=== PATIENT | female | born 1940 | race African-American/Black ===

== ENCOUNTER 2017-07-09 19:39 | Inpatient (IN) | payer MEDICARE, SELFPAY ==
[2017-07-09] VITALS (9 sets, daily range): BP systolic 126–172; BP diastolic 71–99; PULSE 69–90; RESP 15–25; TEMP 36.8; O2SAT 97–98; BMI 20.9
--- NOTE | 2017-07-09 20:02 | CT_ITS ---
STUDY: CT BRAIN WITHOUT CONTRAST REASON FOR EXAM: Female, 77 years old. Neurologic symptoms. RADIATION DOSAGE (If Supplied By Facility): CTDIvol = ( 44.99 ) mGy, DLP = ( 745.49 ) mGycm TECHNIQUE: Transaxial CT imaging of the brain was performed without administration of intravenous contrast material. Individualized dose optimization techniques were used for this CT. COMPARISON: 05/29/2017. FINDINGS: Normal soft tissue structures. Normal calvarium. There is moderate cerebral atrophy with widening of the extra-axial spaces and ventricular dilatation. There are areas of decreased attenuation within the white matter tracts of the supratentorial brain, consistent with microvascular disease changes. There are bilateral lacunar infarcts of the basal ganglia and thalami. Normal brainstem. There is moderate cerebellar atrophy. There is no intracranial hemorrhage. There are no findings of an acute ischemic infarction. Normal visualized paranasal sinuses. CT/Brain/Head without Contrast IMPRESSION: No change. No acute abnormality. Atrophy and White matter disease. Electronically Signed: Laz Lepe MD at 21:15 EST , Service support ,
--- NOTE | 2017-07-09 20:02 | EKG12_ITS ---
Test Reason : CP Blood Pressure : / mmHG Vent. Rate : 090 BPM Atrial Rate : 090 BPM P-R Int : 132 ms QRS Dur : 062 ms QT Int : 354 ms P-R-T Axes : 035 014 022 degrees QTc Int : 433 ms Normal sinus rhythm Normal ECG Confirmed by PARVEEN SIMMONS MD ([id number]), image editor VINNY SHANKAR ([id number]) on 07/12/2017 3:25:23 PM Referred By: DAVE Confirmed By:PARVEEN SIMMONS MD
--- NOTE | 2017-07-09 20:02 | RAD_ITS ---
STUDY: X-RAY CHEST REASON FOR EXAM: Female, 77 years old. Short of breath TECHNIQUE: Single AP portable view of the chest. COMPARISON: 03/31/2017. FINDINGS: The lungs are clear and expanded. There is no demonstrated pleural abnormality. Normal size heart. Normal mediastinum and mikki. Normal visualized pulmonary arteries. There is atherosclerotic tortuosity of the aortic arch and descending thoracic aorta. Implanted home economist consumer service is seen overlying the left upper quadrant. Normal visualized thoracic spine. Normal visualized ribs, clavicles, and shoulders. There is no demonstrated abnormality of the visualized soft tissue structures of the upper abdomen. RAD/Chest 1 View IMPRESSION: No acute chest disease. Electronically Signed: Laz Lepe MD at 21:17 EST , Service support ,
[2017-07-09 20:20] LABS: Absolute Lymphocyte Count 1.69 X10^3/ul (0.83-4.51); Absolute Neutrophil Count 8.7 X10^3/uL (2.0-7.7); Basophil# 0.01 X10^3/uL; Basophil% 0.1 % (0-1); Eosinophil# 0.18 X10^3/uL; Eosinophils% 1.5 % (0-5); Hematocrit 41.5 % (37-47); Hemoglobin 13.2 g/dl (12.0-15.0); Lymphocyte # 1.69 X10^3/ul (4.0); Lymphocyte % 14.5 % (19-41); Mean Corp Hgb Conc 31.8 g/gl (32-36); Mean Corpuscular Hgb 29.1 pg (27.0-32.0); Mean Corpuscular Volume 91.4 fL (81-99); Mean Platelet Vol. 11.1 fl (6.2-12.0); Monocyte# 1.03 X10^3/uL; Monocyte% 8.8 % (0-10); Neutrophil # 8.65 X10^3/uL (2.7-7.7); Neutrophil % 74.3 % (47-70); Platelet Count 206 K/mm3 (150-450); RBC Distribution Width CV 14.2 % (11.6-14.6); RBC Distribution Width SD 47.5 fl (35.1-43.9); Red Blood Count 4.54 M/mm3 (4.2-5.4); White Blood Count 11.7 K/mm3 (4.4-11.0)
[2017-07-09 20:21] LABS: POSITIVE COUNT NO; POSITIVE DIFFERENTIAL NO; POSITIVE MORPHOLOGY NO
[2017-07-09 20:24] LABS: Prothrombin Time (Protime)PT. 12.9 SECONDS (11.7-14.9)
[2017-07-09 20:25] LABS: Partial Thromboplast Time 28.8 Seconds (24.1-36.2)
[2017-07-09 20:26] LABS: Bedside Glucose 110 mg/dL (70-110)
[2017-07-09 20:36] LABS: Anion Gap 9 (5-15); BUN 21 mg/dL (7-18); BUN/Creat Ratio 22.1 RATIO (10-20); Calcium,Total 8.6 mg/dL (8.5-10.1); Chloride 109 mmol/L (98-107); Creatinine, Serum 0.95 mg/dL (0.55-1.02); EST Glomerular Filtration Rate 60 mL/min (>60); Est Glom Filt Rate - Afr Amer 73 mL/min (>60); Estimated Creatinine Clearance 36.23 ml/min; Glucose 108 mg/dL (70-110); Potassium 3.9 mmol/L (3.5-5.1); Sodium Level 144 mmol/L (136-145)
[2017-07-09] MEDS: 0.9% Normal Saline 1,000 ML 15 ML IV (20:38)
--- NOTE | 2017-07-09 21:00 | ED.RN ---
aware of nih changes.
--- NOTE | 2017-07-09 21:38 | ED.VISSUMM ---
- ER Visit Summary Date of Service: 07/09/17 Chief Complaint: Weakness and speech difficulty History of Present Illness: The patient is a 77 F with a history of multiple prior strokes. She has chronic speech difficulty and right-sided weakness. Family noted right leg weakness tonight around 6 PM where she can no longer walk with her walker. He states she was last up and ambulatory around 1230. Patient has a history of dementia, CVAs, diabetes, hypertension, and Alzheimer's. Patient is currently on aspirin but has been out of her Plavix for the last 2 or 3 months. She currently also has an embedded loop recorder. Family also notes that she has had increased difficulty swallowing over the past 2 or 3 days. Physical Examination: Blood pressure is 166/71, otherwise vitals are normal. Patient's lying in bed no acute distress. Head neck examination reveals no external sign of trauma. Heart is regular rate and rhythm. Lungs are clear. Abdomen is soft nontender. Neuro exam reveals an NIH score of 3. She receives one point for right leg weakness. He does fall before the count of 5 but does not hit the bed. Best language and dysarthria each receive one-point. These are chronic in nature. Test Results: EKG is sinus at 90 with no sign of acute ischemia. Head CT shows no change in no acute abnormality. Chest x-ray is unremarkable. CBC was a white count 11.7, otherwise normal. Chemistry studies are normal. Coags are normal. Troponin is less than 0.02. Emergency Department Course and Treatment: On repeat evaluation, NIH score is unchanged. Test results were discussed with the family. She will be needed for further treatment. At this time I am concerned that she cannot undergo MRI secondary to her loop recorder, but this will need to be verified. Her dysphasia will also need further evaluation. Treatment Plan: [] Disposition: Admit Impression: 1. Right leg weakness 2. Increased dysphasia This note was generated with [employer] dictation software. It may contain incorrect words, spelling, and punctuation that were not noted in review of the chart prior to signing ED Disposition - Plan for ED Patient: Chief Complaint: Neuro S/Sx Referrals: Thom Werner Chi, MD [Primary Care Provider] -
--- NOTE | 2017-07-09 21:41 | ED.DCSUM_ITS ---
- ER Visit Summary Date of Service: 07/09/17 Chief Complaint: Weakness and speech difficulty History of Present Illness: The patient is a 77 F with a history of multiple prior strokes. She has chronic speech difficulty and right-sided weakness. Family noted right leg weakness tonight around 6 PM where she can no longer walk with her walker. He states she was last up and ambulatory around 1230. Patient has a history of dementia, CVAs, diabetes, hypertension, and Alzheimer' s. Patient is currently on aspirin but has been out of her Plavix for the last 2 or 3 months. She currently also has an embedded loop recorder. Family also notes that she has had increased difficulty swallowing over the past 2 or 3 days. Physical Examination: Blood pressure is 166/71, otherwise vitals are normal. Patient's lying in bed no acute distress. Head neck examination reveals no external sign of trauma. Heart is regular rate and rhythm. Lungs are clear. Abdomen is soft nontender. Neuro exam reveals an NIH score of 3. She receives one point for right leg weakness. He does fall before the count of 5 but does not hit the bed. Best language and dysarthria each receive one-point. These are chronic in nature. Test Results: EKG is sinus at 90 with no sign of acute ischemia. Head CT shows no change in no acute abnormality. Chest x-ray is unremarkable. CBC was a white count 11.7, otherwise normal. Chemistry studies are normal. Coags are normal. Troponin is less than 0.02. Emergency Department Course and Treatment: On repeat evaluation, NIH score is unchanged. Test results were discussed with the family. She will be needed for further treatment. At this time I am concerned that she cannot undergo MRI secondary to her loop recorder, but this will need to be verified. Her dysphasia will also need further evaluation. Treatment Plan: [] Disposition: Admit Impression: 1. Right leg weakness 2. Increased dysphasia This note was generated with [employer] dictation software. It may contain incorrect words, spelling, and punctuation that were not noted in review of the chart prior to signing ED Disposition - Plan for ED Patient: Chief Complaint: Neuro S/Sx Referrals: Thom Werner Chi, MD [Primary Care Provider] -
--- NOTE | 2017-07-09 23:18 | HP.PCM_ITS ---
Problem List (1) Right leg weakness Status: Acute (2) CVA (cerebral vascular accident) Status: Acute (3) Dysarthria Status: Acute (4) Fall Status: Acute (5) Right clavicle fracture Status: Acute (6) TIA (transient ischemic attack) Status: Acute (7) right cerebral stroke Status: Acute History of Present Illness Date of Admission: 07/09/17 Chief Complaint: Right leg weakness The patient is a 77 year old female w/ h/o CVA, dementia, HTN, and CAD admitted for worsening right leg weakness. She is a poor historian. History is taken from family members. She has a stroke several months ago that resulted in right leg weakness. Despite weakness in the right leg, she was still able to move it. However, in the past few days, per family, she had limited movement in the right leg until this morning, pt was unable to move it at all. The weakness was so severe that it interfered with her ADLs. Nothing appeared to make it better or worse. Weakness was persistent. Family members became concern and brought her into the ED for workup. 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) Dementia (Chronic) Hyperlipidemia (Chronic) Coronary artery disease (Chronic) Vitamin D deficiency (Chronic) History of stroke (Chronic) CKD (chronic kidney disease), stage III (Chronic) Allergies Penicillins [PCN] Allergy (Verified 07/09/17 19:40) Unknown Home Medications: Ambulatory Orders Medication Instructions Recorded Acetaminophen [Tylenol] 1,000 mg PO Q8H PRN PRN tablet 01/25/17 Aspirin [Aspirin, Baby] 81 mg PO DAILY@0800 #30 tab.chew 01/25/17 Atorvastatin Calcium [Lipitor] 80 mg PO QHS #30 tablet 01/25/17 Tamsulosin HCl [Flomax] 0.4 mg PO DAILY@1730 capsule 02/28/17 Bisacodyl [Dulcolax] 10 mg RECTAL DAILY PRN 03/08/17 Doxycycline 100 mg PO BID 07/09/17 Memantine HCl/Donepezil HCl 1 each PO DAILY 07/09/17 [Namzaric 28 mg-10 mg Capsule] Surgical History: cataract, cholecystectomy, hysterectomy, - - R Foot surgery. 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 Smoking Status: Never smoker - *Family History Paternal History Items: Diabetes Maternal History Items: Diabetes Review of Systems Constitutional: Denies: Chills, Fever, Weight Change Eyes: Denies: Cataracts HEENT: Denies: Head Aches, Sinus Congestion, Sinus Drainage Cardiovascular: Denies: Chest Pain, Palpitations Respiratory: Denies: Cough, Shortness of breath at rest, Sputum production Gastrointestinal: Denies: Abdominal Pain, Nausea, Vomiting Genitourinary: Denies: Dysuria Musculoskeletal: Denies: Joint Pain, Joint Tenderness Skin: Denies: Rash, Wounds Neurological: Reports: Focal weakness, Numbness. Denies: Tingling Psychiatric: Denies: Anxiety, Depression, Homicidal Ideations, Suicidal Ideations Hematologic/ Lymphatic: Denies: Easy Bruising, Easy Bleeding VTE Information - Inpt Only VTE Present on Admission: No VTE Mechan Device Prophylaxis: SCD's VTE Pharm Prophylaxis ordered?: Yes Patient Problems: Active and Suspected Problems Right leg weakness (Acute) - Physical Exam General: Alert, Oriented x3, Cooperative HEENT: Atraumatic, PERRLA, EOMI, Normocephalic Neck: Supple, No JVD, Negative Carotid Bruits Lungs: Clear to auscultation, Normal air movement Cardiovascular: Regular rate, No murmurs Abdomen: Bowel Sounds Present, Soft, Non Tender Extremities: No edema, Capillary Refill Less than 3 Seconds Skin: No rashes, No breakdown Musculoskeletal: No Tenderness to Palpation of Joints or Extremities Neurological: Cranial nerves II-XII grossly intact Psych/Mental Status: Normal Affect, Appropriate Vital Signs Temp Pulse Resp BP Pulse Ox 98.3 F 75 17 168/81 H 97 07/09/17 19:40 07/09/17 22:38 07/09/17 22:38 07/09/17 22:38 07/09/17 22:38 Oxygen Delivery Method Room Air Weight: 50.349 kg Body Mass Index (BMI) 20.9 Finger Stick Blood Glucose 110 Laboratory Tests Past 24 Hrs 07/09/17 07/09/17 07/09/17 19:58 19:58 19:58 WBC 11.7 H RBC 4.54 Hgb 13.2 Hct 41.5 MCV 91.4 MCH 29.1 MCHC 31.8 L RDW 14.2 RDW Differential 47.5 H Plt Count 206 MPV 11.1 Immature Gran % (Auto) 0.800 Neut % (Auto) 74.3 H Lymph % (Auto) 14.5 L [place] % (Auto) 8.8 Eos % (Auto) 1.5 Baso % (Auto) 0.1 Absolute Neuts (auto) 8.7 H Absolute Lymphs (auto) 1.69 Total Counted Not Reportable PT 12.9 INR 1.0 APTT 28.8 Sodium 144 Potassium 3.9 Chloride 109 H Carbon Dioxide 26.0 Anion Gap 9 BUN 21 H Creatinine 0.95 Estim Creat Clear Calc 36.23 Est GFR (MDRD) Af Amer 73 Est GFR (MDRD) Non-Af 60 BUN/Creatinine Ratio 22.1 H Glucose 108 Calcium 8.6 Troponin I < 0.02 POC Glucose 07/09/17 19:47 POC Glucose 110 Assessment/Plan Active and Suspected Problems Right leg weakness (Acute) 77 year old female w/ h/o CVA, dementia, HTN, and CAD admitted for worsening right leg weakness. 1) Right leg weakness: CT negative. EKG unremarkable. H/o CVA. Will get ECHO. Will get carotid U/S. Given h/o metal implant, will repeat CT in AM. Neuro consulted. 2) H/o CVA: Resume home meds. Monitor. 3) Dementia: Most likely CVA and alzheimer's. Supportive care. 4) Prophylaxis: SCD / Heparin.
--- NOTE | 2017-07-09 23:19 | NURSING ---
PCU WORSENING RT LEG WEAKNESS MIMI
[2017-07-10] VITALS (13 sets, daily range): BP systolic 150–159; BP diastolic 74–93; PULSE 55–72; RESP 14–18; TEMP 36.6–37; O2SAT 96–100; BMI 20.5; BMI 20.6
[2017-07-10] MEDS: 0.9% Normal Saline 1,000 ML 100 ML IV ×3 (00:48→22:45)
--- NOTE | 2017-07-10 00:51 | NURSING ---
PT HAS FAILED BEDSIDE DYSPHAGIA, WILL ALERT MD AND KEEP NPO OVERNIGHT
[2017-07-10] MEDS: Heparin Injection 5,000 UNITS/ML Syringe 5000 UNITS SC ×3 (05:10→22:46)
--- NOTE | 2017-07-10 05:55 | CDU_ITS ---
Reason For Study: TIA Rt. Velocities/BP Lt. Velocities/BP Prox CCA 81/14 cm/sec. Prox CCA 83/14 cm/sec. Mid CCA 55/10 cm/sec. Mid CCA 80/15 cm/sec. Dist CCA 64/10 cm/sec. Dist CCA 72/15 cm/sec. Prox ICA 67/15 cm/sec. Prox ICA 59/11 cm/sec. Mid ICA 59/13 cm/sec. Mid ICA 62/11 cm/sec. Dist ICA 63/17 cm/sec. Dist ICA 79/19 cm/sec. Rt. ICA/CCA = 1.21. Lt. ICA/CCA = 0.98. Prox ECA 61/7 cm/sec. Prox ECA 87/11 cm/sec. Rt. Vert. 46/9 cm/sec. Lt. Vert. 45/11 cm/sec. Right Extracranial There is heterogeneous, irregular atherosclerotic plaque noted in the right common carotid artery. There is heterogeneous, irregular atherosclerotic plaque noted in the right internal carotid artery. There is no significant atherosclerotic plaque noted in the right external carotid artery. Antegrade flow is noted in the right vertebral artery. Left Extracranial There is intimal thickening but no significant atherosclerotic plaque noted in the left common carotid artery. There is heterogeneous, irregular atherosclerotic plaque noted in the left internal carotid artery. There is no significant atherosclerotic plaque noted in the left external carotid artery. Antegrade flow is noted in the left vertebral artery. Procedure Carotid Duplex 34850. Exam performed portable in patient room. Incidental Finding: Hypoechoic, non vascular structure noted Lt Thyroid measuring 1.14cm x 1.69cm. Interpretation Summary Mild (<50%) stenosis right extracranial internal carotid. Mild (<50%) stenosis left extracranial internal carotid. Flow within the vertebral arteries is antegrade bilaterally. Ordering Physician: Zackery Alvarez Referring Physician: Thom Werner Chi Performed By: Maddison Horner, RDCS, RVT
--- NOTE | 2017-07-10 05:55 | ECHOD_ITS ---
Reason For Study: TIA/CVA Procedure This was a 2D Doppler, Color Flow transthoracic echocardiogram. The study was technically difficult. PT unable to lie in left lateral position for imaging, constant movement. Exam performed portable in patient room. Left Ventricle Normal LV size. Left ventricular systolic function is normal. The estimated ejection fraction is 60 %. No regional wall motion abnormalities noted. Right Ventricle Normal RV size. Normal systolic function. Atria Normal left atrium. Normal right atrium. Mitral Valve Normal mitral valve. Tricuspid Valve Normal tricuspid valve. Mild (1+) tricuspid valve insufficiency. Pulmonary artery systolic pressure is 35 mmHg. Aortic Valve Trisinus/trileaflet aortic valve. Mild focal aortic valve calcification. Trivial eccentric aortic valve insufficiency. Pulmonic Valve The pulmonic valve is not well visualized. Great Vessels Normal aortic root. The pulmonary artery is normal size. Normal inferior vena cava. Pericardium/Pleural No pericardial effusion. MMode/2D Measurements & Calculations LVIDd: 3.8 cm IVSd: 0.87 cm Ao root diam: 3.2 cm LVIDs: 2.4 cm LVPWd: 0.79 cm LA dimension: 4.4 cm FS: 36.1 % LAV(MOD-bp): 23.3 ml LA A4 area: 10.7 cm2 RA A4 area: 10.4 cm2 LAV(MOD-bp) Indexed: 15.9 ml/m2 LAV(MOD-sp2): 21.3 ml LAV(MOD-sp4): 20.6 ml Doppler Measurements & Calculations MV E max anuel: 71.2 cm/sec Lat Peak E' Anuel: 8.2 cm/sec Med Peak E' Anuel: 4.6 cm/sec MV A max anuel: 115.1 cm/sec E/E' lat: 8.7 E/E' med: 15.5 MV E/A: 0.62 Ao V2 max: 123.3 cm/sec LV V1 max: 86.5 cm/sec PA V2 max: 76.6 cm/sec Ao max P.1 mmHg LV V1 max P.0 mmHg TR max anuel: 278.1 cm/sec TR max P.9 mmHg Interpretation Summary Normal LV size. Left ventricular systolic function is normal. The estimated ejection fraction is 60 %. Mild (1+) tricuspid valve insufficiency. Pulmonary artery systolic pressure is 35 mmHg. Ordering Physician: Zackery Alvarez Referring Physician: Thom Werner Chi Performed By: Debi Mckenna RDCS, RVT
[2017-07-10 06:20] LABS: Cholesterol 104 mg/dL (200); High Density Lipoprotein 48 mg/dL; Triglycerides 58 mg/dL; Very Low Density Lipoprotein 12 mg/dL (5-40)
[2017-07-10 07:01] LABS: Bedside Glucose 101 mg/dL (70-110)
--- NOTE | 2017-07-10 08:30 | CT_ITS ---
STUDY: CT BRAIN WITHOUT CONTRAST REASON FOR EXAM: Female, 77 years old. Right leg weakness and difficulty speaking. Patient has history of dementia. RADIATION DOSAGE (If Supplied By Facility): CTDIvol = ( 44.99 ) mGy, DLP = ( 728.62 ) mGycm TECHNIQUE: Transaxial CT imaging of the brain was performed without administration of intravenous contrast material. Multiplanar reformations are submitted for interpretation. Individualized dose optimization techniques were used for this CT. COMPARISON: CT of the head dated July 09, 2017. FINDINGS: Normal soft tissue structures. Normal calvarium. There is moderate cerebral atrophy with widening of the extra-axial spaces and ventricular dilatation. There are areas of decreased attenuation within the white matter tracts of the supratentorial brain, consistent with microvascular disease changes. There is encephalomalacia within bilateral basal ganglia probably related to old infarcts. This is unchanged since the previous CTA. Basal ganglia and thalami otherwise have a normal appearance. Normal brainstem. There is a small area of encephalomalacia within the right cerebellum probably related to old infarct. There is mild cerebellar atrophy. There is no intracranial hemorrhage. There is moderate atherosclerotic calcification of intracranial arteries. Normal visualized paranasal sinuses. CT/Brain/Head without Contrast IMPRESSION: 1. Chronic involutional changes of the brain. 2. Unchanged appearance of the brain. Electronically Signed: Nena Stoner MD at 13:00 EST , Service support ,
--- NOTE | 2017-07-10 10:45 | CASEMGMT ---
Speech therapy at bedside, unable to complete CM assessment at this time. Will attempt again later. Annika AMAYA CM
[2017-07-10] MEDS: Aspirin 81 MG TAB.CHEW PO (11:08)
[2017-07-10] MEDS: Memantine Hydrochloride 10 MG Tablet PO ×2 (11:09→22:46)
--- NOTE | 2017-07-10 13:49 | PCM.CONS.GEN ---
Problem List (1) Chronic ischemic left MCA stroke Status: Chronic (2) Alzheimer's disease Status: Chronic (3) Right leg weakness Status: Acute (4) CVA (cerebral vascular accident) Status: Acute Qualifiers: CVA mechanism: unspecified Qualified Code(s): I63.9 - Cerebral infarction, unspecified (5) Dementia Status: Chronic Qualifiers: Dementia type: Alzheimer's disease Alzheimer's disease onset: unspecified onset Dementia behavioral disturbance: without behavioral disturbance Qualified Code(s): G30.9 - Alzheimer's disease, unspecified; F02.80 - Dementia in other diseases classified elsewhere without behavioral disturbance; F02.80 - Dementia in other diseases classified elsewhere without behavioral disturbance; F02.80 - Dementia in other diseases classified elsewhere without behavioral disturbance (6) Dysarthria Status: Acute Reason for Consult Date of Consultation: 07/10/17 Reason for Consultation: Right LE weakness, dysarthria worsening History of Present Illness: The patient is a 77 year old AAF with PMH HTN, HLD, DM, H/O stroke with residual right sided weakness and aphasia, H/O left cerebellar stroke in December 2016 and possible acute left BG lacunar infarct in February 2017, dementia, CKD, CAD admitted with worsening right leg weakness and speech disturbances. History could not be obtained from the patient, due to aphasia, is obtained from medical records and documentation. Per documentation she had worsening tight LE weakness to the point that she was not able to move the same since yesterday, and her dysarthria is also worse than baseline per documentation. On examination patient had bilateral LE weakness, Labs reviewed WBCs 11.7. BUN 21, Cr-0.95. Per ED documentation she has a loop recorder. 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) Dementia (Chronic) Hyperlipidemia (Chronic) Coronary artery disease (Chronic) Vitamin D deficiency (Chronic) History of stroke (Chronic) CKD (chronic kidney disease), stage III (Chronic) Allergies Penicillins [PCN] Allergy (Verified 07/09/17 19:40) Unknown Home Medications: Ambulatory Orders Medication Instructions Recorded Acetaminophen [Tylenol] 1,000 mg PO Q8H PRN PRN tablet 01/25/17 Aspirin [Aspirin, Baby] 81 mg PO DAILY@0800 #30 tab.chew 01/25/17 Atorvastatin Calcium [Lipitor] 80 mg PO QHS #30 tablet 01/25/17 Tamsulosin HCl [Flomax] 0.4 mg PO DAILY@1730 capsule 02/28/17 Bisacodyl [Dulcolax] 10 mg RECTAL DAILY PRN 03/08/17 Doxycycline 100 mg PO BID 07/09/17 Memantine HCl/Donepezil HCl 1 each PO DAILY 07/09/17 [Namzaric 28 mg-10 mg Capsule] Surgical History: cataract, cholecystectomy, hysterectomy, - - R Foot surgery. 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 Smoking Status: Never smoker - *Family History Paternal History Items: Diabetes Maternal History Items: Diabetes Review of Systems Constitutional: Reports: - - ROS could not be obtained at present since patient is severly dysarthric Patient Problems: Active and Suspected Problems Right leg weakness (Acute) - Physical Exam General: - - awake, alert, follows VC HEENT: Atraumatic, PERRLA, EOMI, Normocephalic Neck: Supple, No JVD, Negative Carotid Bruits Lungs: Clear to auscultation, Normal air movement Cardiovascular: Regular rate, No murmurs Abdomen: Bowel Sounds Present, Soft, Non Tender Extremities: No edema, Capillary Refill Less than 3 Seconds Skin: No rashes, No breakdown Musculoskeletal: No Tenderness to Palpation of Joints or Extremities Neurological: - - consious, awake, severly dysathric, follows VC, CN 2-12 grossly intact, power Right UE 4/5, Left UE 5/5, B/L LE 3/5, plantars right mute, left flexor, denies any sensory loss, no cerebellar signs, Reflexes + B/L B/S/T/K/A, gait deferred. Vital Signs Temp Pulse Resp BP Pulse Ox 98.2 F 61 16 155/80 H 100 07/10/17 10:58 07/10/17 12:07 07/10/17 10:58 07/10/17 10:58 07/10/17 10:58 Oxygen Delivery Method Room Air Weight: 51 kg Body Mass Index (BMI) 20.5 Intake and Output for Last 24 Hours 07/08/17 07/09/17 07/10/17 23:59 23:59 23:59 Intake Total 1071 / 1071 Balance 1071 / 1071 Laboratory Tests Past 24 Hrs 07/10/17 07/10/17 00:33 05:20 Troponin I < 0.02 Triglycerides 58 Cholesterol 104 LDL Cholesterol 44 VLDL Cholesterol 12 HDL Cholesterol 48 POC Glucose 07/10/17 06:34 POC Glucose 101 Assessment/Plan Active and Suspected Problems Right leg weakness (Acute) The patient is a 77 year old AAF with PMH HTN, HLD, DM, H/O stroke with residual right sided weakness and aphasia, H/O left cerebellar stroke in December 2016 and possible acute left BG lacunar infarct in February 2017, dementia, CKD, CAD admitted with worsening right leg weakness and speech disturbances. History could not be obtained from the patient, due to aphasia, is obtained from medical records and documentation. Per documentation she had worsening tight LE weakness to the point that she was not able to move the same since yesterday, and her dysarthria is also worse than baseline per documentation. On examination patient had bilateral LE weakness, Labs reviewed WBCs 11.7. BUN 21, Cr-0.95. Per ED documentation she has a loop recorder. [] Impression R/O Stroke vs metabolic/toxic encephalopathy Dementia Plan -On ASA and Lipitor 80 mg PO q hs. Has been on high intensity statins for the past more than 3 months. Was on dual AP for possible acute left lacunar BG stroke in February 2017 for 3 months then was switched to single AP. -Can decrease Lipitor to 40 mg PO q hs -CT head did not show any acute stroke -Recommend MRI brain w/o contrast, (had MRI brain in February 2017), MRA head/neck -Recommend UA and chest xray -Recommend TTE, Hba1c -LDL-44 -On Aricept and Namenda for Dementia -Recommend PT/OT and ST -Fall precautions -GI/DVT prophylaxis -Neurology follow up as outpatient in 4-6 weeks -Please call with questions if any -Thank you for allowing us to participate in patient's care and management I spent 60 minutes taking history, doing physical examination, reviewing old medical records, coordinating care and counseling the patient. Code Visit Inpatient E&M: [id number] Init Hosp L3
--- NOTE | 2017-07-10 13:54 | CON.PCM_ITS ---
Problem List (1) Chronic ischemic left MCA stroke Status: Chronic (2) Alzheimer's disease Status: Chronic (3) Right leg weakness Status: Acute (4) CVA (cerebral vascular accident) Status: Acute Qualifiers: CVA mechanism: unspecified Qualified Code(s): I63.9 - Cerebral infarction, unspecified (5) Dementia Status: Chronic Qualifiers: Dementia type: Alzheimer's disease Alzheimer's disease onset: unspecified onset Dementia behavioral disturbance: without behavioral disturbance Qualified Code(s): G30.9 - Alzheimer's disease, unspecified; F02.80 - Dementia in other diseases classified elsewhere without behavioral disturbance; F02.80 - Dementia in other diseases classified elsewhere without behavioral disturbance; F02.80 - Dementia in other diseases classified elsewhere without behavioral disturbance (6) Dysarthria Status: Acute Reason for Consult Date of Consultation: 07/10/17 Reason for Consultation: Right LE weakness, dysarthria worsening History of Present Illness: The patient is a 77 year old AAF with PMH HTN, HLD, DM, H/O stroke with residual right sided weakness and aphasia, H/O left cerebellar stroke in December 2016 and possible acute left BG lacunar infarct in February 2017, dementia, CKD, CAD admitted with worsening right leg weakness and speech disturbances. History could not be obtained from the patient, due to aphasia, is obtained from medical records and documentation. Per documentation she had worsening tight LE weakness to the point that she was not able to move the same since yesterday , and her dysarthria is also worse than baseline per documentation. On examination patient had bilateral LE weakness, Labs reviewed WBCs 11.7. BUN 21, Cr-0.95. Per ED documentation she has a loop recorder. 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) Dementia (Chronic) Hyperlipidemia (Chronic) Coronary artery disease (Chronic) Vitamin D deficiency (Chronic) History of stroke (Chronic) CKD (chronic kidney disease), stage III (Chronic) Allergies Penicillins [PCN] Allergy (Verified 07/09/17 19:40) Unknown Home Medications: Ambulatory Orders Medication Instructions Recorded Acetaminophen [Tylenol] 1,000 mg PO Q8H PRN PRN tablet 01/25/17 Aspirin [Aspirin, Baby] 81 mg PO DAILY@0800 #30 tab.chew 01/25/17 Atorvastatin Calcium [Lipitor] 80 mg PO QHS #30 tablet 01/25/17 Tamsulosin HCl [Flomax] 0.4 mg PO DAILY@1730 capsule 02/28/17 Bisacodyl [Dulcolax] 10 mg RECTAL DAILY PRN 03/08/17 Doxycycline 100 mg PO BID 07/09/17 Memantine HCl/Donepezil HCl 1 each PO DAILY 07/09/17 [Namzaric 28 mg-10 mg Capsule] Surgical History: cataract, cholecystectomy, hysterectomy, - - R Foot surgery. 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 Smoking Status: Never smoker - *Family History Paternal History Items: Diabetes Maternal History Items: Diabetes Review of Systems Constitutional: Reports: - - ROS could not be obtained at present since patient is severly dysarthric Patient Problems: Active and Suspected Problems Right leg weakness (Acute) - Physical Exam General: - - awake, alert, follows VC HEENT: Atraumatic, PERRLA, EOMI, Normocephalic Neck: Supple, No JVD, Negative Carotid Bruits Lungs: Clear to auscultation, Normal air movement Cardiovascular: Regular rate, No murmurs Abdomen: Bowel Sounds Present, Soft, Non Tender Extremities: No edema, Capillary Refill Less than 3 Seconds Skin: No rashes, No breakdown Musculoskeletal: No Tenderness to Palpation of Joints or Extremities Neurological: - - consious, awake, severly dysathric, follows VC, CN 2-12 grossly intact, power Right UE 4/5, Left UE 5/5, B/L LE 3/5, plantars right mute , left flexor, denies any sensory loss, no cerebellar signs, Reflexes + B/L B/S/ T/K/A, gait deferred. Vital Signs Temp Pulse Resp BP Pulse Ox 98.2 F 61 16 155/80 H 100 07/10/17 10:58 07/10/17 12:07 07/10/17 10:58 07/10/17 10:58 07/10/17 10:58 Oxygen Delivery Method Room Air Weight: 51 kg Body Mass Index (BMI) 20.5 Intake and Output for Last 24 Hours 07/08/17 07/09/17 07/10/17 23:59 23:59 23:59 Intake Total 1071 / 1071 Balance 1071 / 1071 Laboratory Tests Past 24 Hrs 07/10/17 07/10/17 00:33 05:20 Troponin I < 0.02 Triglycerides 58 Cholesterol 104 LDL Cholesterol 44 VLDL Cholesterol 12 HDL Cholesterol 48 POC Glucose 07/10/17 06:34 POC Glucose 101 Assessment/Plan Active and Suspected Problems Right leg weakness (Acute) The patient is a 77 year old AAF with PMH HTN, HLD, DM, H/O stroke with residual right sided weakness and aphasia, H/O left cerebellar stroke in December 2016 and possible acute left BG lacunar infarct in February 2017, dementia, CKD, CAD admitted with worsening right leg weakness and speech disturbances. History could not be obtained from the patient, due to aphasia, is obtained from medical records and documentation. Per documentation she had worsening tight LE weakness to the point that she was not able to move the same since yesterday , and her dysarthria is also worse than baseline per documentation. On examination patient had bilateral LE weakness, Labs reviewed WBCs 11.7. BUN 21, Cr-0.95. Per ED documentation she has a loop recorder. [] Impression R/O Stroke vs metabolic/toxic encephalopathy Dementia Plan -On ASA and Lipitor 80 mg PO q hs. Has been on high intensity statins for the past more than 3 months. Was on dual AP for possible acute left lacunar BG stroke in February 2017 for 3 months then was switched to single AP. -Can decrease Lipitor to 40 mg PO q hs -CT head did not show any acute stroke -Recommend MRI brain w/o contrast, (had MRI brain in February 2017), MRA head/neck -Recommend UA and chest xray -Recommend TTE, Hba1c -LDL-44 -On Aricept and Namenda for Dementia -Recommend PT/OT and ST -Fall precautions -GI/DVT prophylaxis -Neurology follow up as outpatient in 4-6 weeks -Please call with questions if any -Thank you for allowing us to participate in patient's care and management I spent 60 minutes taking history, doing physical examination, reviewing old medical records, coordinating care and counseling the patient. Code Visit Inpatient E&M: [id number] Init Hosp L3
--- NOTE | 2017-07-10 14:16 | MRI_ITS ---
STUDY: MRI BRAIN WITHOUT CONTRAST REASON FOR EXAM: Female, 77 years old. Stroke versus encephalomalacia. TECHNIQUE: Standardized multiplanar fat and water weighted pulse sequences were obtained. COMPARISON: None. FINDINGS: There is an old lacunar infarct involving the left lentiform nucleus with mild intrahepatic dilatation of the left lateral ventricle especially the frontal. There is no acute hemorrhage or acute infarction. No intra or extra-axial tumor mass. Nonspecific microangiopathic white matter changes are seen bilaterally The pituitary and pineal regions are normal. The corpus callosum and brainstem are normal. Both cerebellopontine angles are clear. The cerebellar vermis and globes are normal. The calvarium is intact. There are no scalp swellings MRI/Brain without Contrast IMPRESSION: No acute findings in the brain. An old lacunar infarct involving the left lentiform. Nonspecific microangiopathic white matter changes Electronically Signed: Evans Rahman, at 2:55 EST Tel , Service support ,
--- NOTE | 2017-07-10 15:05 | CASEMGMT ---
This RN CM to bedside to complete CM assessment and pt is unable to answer any questions at this time d/t aphasia. No family at bedside at this time. This RN CM will attempt to reach daughter in the am to complete assessment. SStrafael RN CM
[2017-07-10] MEDS: LORazepam 2 MG/ML Syringe 1 MG IV (16:45)
[2017-07-10 17:56] LABS: Bedside Glucose 86 mg/dL (70-110)
[2017-07-10] MEDS: Tamsulosin HCl 0.4 MG Capsule PO (18:13)
[2017-07-10 18:21] LABS: Mucous, Urine 0 SEEN /hpf (<or=2+); Red Blood Cells-Urine 0 SEEN /hpf (0-5); Squamous Epithelial Cells - UA 0 SEEN /hpf (5-10); White Blood Cells 0 SEEN /hpf (0-5)
[2017-07-10 18:25] LABS: Color, Urine Straw (Yellow); Glucose, Dipstick Normal (Normal); Ketone-Dipstick Negative (Negative); Leukocyte Esterase-Dipstick Negative /ul (Negative); Nitrite-Dipstick Negative (Negative); Occult Blood-Urine Negative /ul (Negative); Protein-Dipstick Negative (Negative); Specific Gravity, Urine 1.005 (1.002-1.030); Urine Bilirubin Dipstick Negative (Negative); Urine Clarity Clear (Clear); Urine Urobilinogen Normal (Normal)
[2017-07-10 18:58] LABS: Bacteria RARE /hpf (None Seen)
--- NOTE | 2017-07-10 22:25 | PCM.PROGNOTE ---
Patient Problems: Active and Suspected Problems Right leg weakness (Acute) Subjective: Patient was seen and examined today, her daughters were in the room, they agree that the patient should go at least temporarily to a correction facility for rehab, neurology ordered an MRI of the brain today-patient had to be sedated for the procedure, results of the procedure are pending at this time. Patient's brain CT from this morning was unchanged from her admission CT. Patient's echocardiogram showed a normal EF with mild pulmonary hypertension. PT and OT are seeing the patient - Physical Exam General: Alert, Cooperative, No apparent distress, Well developed HEENT: Atraumatic, PERRLA, EOMI Oral: Moist Mucosa Neck: Supple, No JVD, No Nuchal Rigidity, Trachea Midline, Thyroid Normal Size and Texture Lungs: Clear to auscultation, Normal air movement, No rhonchi, No wheeze, No rales Cardiovascular: Regular rate, Regular Rhythm, Normal S1, Normal S2, PMI Normal, Murmur - 2/6 systolic murmur is noted at the apex and a 1/6 systolic murmur is noted at the right sternal border, No rub noted, No Gallop Abdomen: Bowel Sounds Present, Soft, Non Tender, Non-Distended, No hernias noted Extremities: No clubbing, No cyanosis, No edema, Capillary Refill Less than 3 Seconds Skin: No rashes, No breakdown Musculoskeletal: No Tenderness to Palpation of Joints or Extremities Neurological: Cranial nerves II-XII grossly intact, - - She has significant dysarthria, patient's motor strength is diminished on the right Psych/Mental Status: - - Patient is alert but has significant dysarthria Vital Signs Temp Pulse Resp BP Pulse Ox 98.3 F 70 15 157/89 H 97 07/10/17 17:35 07/10/17 19:00 07/10/17 17:35 07/10/17 17:35 07/10/17 17:35 Oxygen Delivery Method Room Air Weight: 51 kg Body Mass Index (BMI) 20.5 Intake and Output for Last 24 Hours 07/08/17 07/09/17 07/10/17 23:59 23:59 23:59 Intake Total 1608 / 1608 Output Total 3 / 3 Balance 1605 / 1605 Laboratory Tests Past 24 Hrs 07/10/17 07/10/17 07/10/17 00:33 05:20 17:50 Troponin I < 0.02 Triglycerides 58 Cholesterol 104 LDL Cholesterol 44 VLDL Cholesterol 12 HDL Cholesterol 48 Urine Color Straw Urine Clarity Clear Urine pH 7.0 Ur Specific [place] 1.005 Urine Protein Negative Urine Glucose (UA) Normal Urine Ketones Negative Urine Occult Blood Negative Urine Nitrite Negative Urine Bilirubin Negative Urine Urobilinogen Normal Ur Leukocyte Esterase Negative Urine RBC 0 SEEN Urine WBC 0 SEEN Ur Squamous Epith Cells 0 SEEN Urine Bacteria RARE Urine Mucus 0 SEEN POC Glucose 07/10/17 07/10/17 17:38 06:34 POC Glucose 86 101 Assessment/Plan Active and Suspected Problems Right leg weakness (Acute) #1 right sided weakness-etiology unclear, MRI of the brain is pending at this time, continue PT and OT, neurology is seeing patient #2 vascular dementia #3 cerebrovascular disease #4 hyperlipidemia #5 generalized debility secondary to vascular dementia and cerebrovascular disease-patient will need placed in a correction facility at least short-term, patient's family favors TCU Code Visit Inpatient E&M: [id number] Subs Hosp L2
[2017-07-10] MEDS: Donepezil HCl 10 MG Tablet PO (22:46)
[2017-07-10] MEDS: Atorvastatin Calcium 40 MG Tablet PO (22:46)
[2017-07-10 22:51] LABS: Bedside Glucose 111 mg/dL (70-110)
[2017-07-11] VITALS (12 sets, daily range): BP systolic 143–166; BP diastolic 70–100; PULSE 57–78; RESP 16–28; TEMP 36.8–37.2; O2SAT 95–98; BMI 20.5
[2017-07-11] MEDS: Heparin Injection 5,000 UNITS/ML Syringe 5000 UNITS SC ×3 (06:32→22:43)
[2017-07-11 06:35] LABS: Bedside Glucose 110 mg/dL (70-110)
[2017-07-11] MEDS: Aspirin 81 MG TAB.CHEW PO (09:24)
[2017-07-11] MEDS: Memantine Hydrochloride 10 MG Tablet PO ×2 (09:24→22:44)
[2017-07-11] MEDS: 0.9% Normal Saline 1,000 ML 100 ML IV ×2 (09:25→14:32)
--- NOTE | 2017-07-11 12:05 | CASEMGMT ---
Patient is going to need placement. ARLINE called patient's daughter, Diana Fleming, who is patient's POA. ARLINE left her a voice mail. ARLINE then called patient's other daughter, Karo, with whom she lives and she said their first choice would be TCU. ARLINE told her TCU is full. She wanted to call Diana to get the second choice. Received a call back from Karo and she said [facility] would be their next choice. ARLINE told her will let them know when SW hears anything. ARLINE faxed referral to [facility]. ARLINE then received a return call from Diana and she said [facility] would be fine. She asked that SW let her know when SW knows more. ARLINE spoke with Holly in TCU and she will have a bed for patient. She will start the pre-cert. ARLINE called both of patient's daughters and left them voice mails letting them know patient can go to TCU when insurance approves. ARLINE called Marlee at [facility] and canceled the referral. Lluvia JOHNSTON MSW
--- NOTE | 2017-07-11 14:10 | PN.NEURO_ITS ---
Patient Problems: Active and Suspected Problems Right leg weakness (Acute) Subjective: No issues overnight - Physical Exam General: Alert, Cooperative HEENT: Atraumatic, PERRLA, EOMI, Normocephalic Neck: Supple, No JVD, Negative Carotid Bruits Lungs: Clear to auscultation, Normal air movement Cardiovascular: Regular rate, No murmurs Abdomen: Bowel Sounds Present, Soft, Non Tender Extremities: No edema, Capillary Refill Less than 3 Seconds Skin: No rashes, No breakdown Musculoskeletal: No Tenderness to Palpation of Joints or Extremities Neurological: - - consious, awake, severly dysathric, follows VC, CN 2-12 grossly intact, power Right UE 4/5, Left UE 5/5, B/L LE +4/5, plantars right mute, left flexor, denies any sensory loss, no cerebellar signs, Reflexes + B/L B/S/T/K/A, gait deferred. Psych/Mental Status: Normal Affect, Appropriate Vital Signs Temp Pulse Resp BP Pulse Ox 98.5 F 58 L 16 159/77 H 97 07/11/17 10:10 07/11/17 11:00 07/11/17 10:10 07/11/17 10:10 07/11/17 10:10 Oxygen Delivery Method Room Air Weight: 51 kg Body Mass Index (BMI) 20.5 Intake and Output for Last 24 Hours 07/09/17 07/10/17 07/11/17 23:59 23:59 23:59 Intake Total 2250 / 2250 1266 / 1266 Output Total 3 / 3 Balance 2247 / 2247 1266 / 1266 Laboratory Tests Past 24 Hrs 07/10/17 17:50 Urine Color Straw Urine Clarity Clear Urine pH 7.0 Ur Specific [place] 1.005 Urine Protein Negative Urine Glucose (UA) Normal Urine Ketones Negative Urine Occult Blood Negative Urine Nitrite Negative Urine Bilirubin Negative Urine Urobilinogen Normal Ur Leukocyte Esterase Negative Urine RBC 0 SEEN Urine WBC 0 SEEN Ur Squamous Epith Cells 0 SEEN Urine Bacteria RARE Urine Mucus 0 SEEN POC Glucose 07/11/17 07/10/17 07/10/17 06:29 22:38 17:38 POC Glucose 110 111 H 86 Assessment/Plan Active and Suspected Problems Right leg weakness (Acute) The patient is a 77 year old AAF with PMH HTN, HLD, DM, H/O stroke with residual right sided weakness and aphasia, H/O left cerebellar stroke in December 2016 and possible acute left BG lacunar infarct in February 2017, dementia, CKD, CAD admitted with worsening right leg weakness and speech disturbances. History could not be obtained from the patient, due to aphasia, is obtained from medical records and documentation. Per documentation she had worsening tight LE weakness to the point that she was not able to move the same since yesterday , and her dysarthria is also worse than baseline per documentation. On examination patient had bilateral LE weakness, Labs reviewed WBCs 11.7. BUN 21, Cr-0.95. Per ED documentation she has a loop recorder. [] Impression Likely Metabolic/toxic encephalopathy Dementia Plan -On ASA -On Lipitor 40 mg PO q hs -CT head did not show any acute stroke -MRI brain w/o contrast- no acute stroke -UA-neg -Recommend EEG -TTE- EF 60%, normal LA size, -LDL-44, await Hba1c -On Aricept and Namenda for Dementia -Recommend PT/OT and ST -Fall precautions -GI/DVT prophylaxis -Neurology follow up as outpatient in 4-6 weeks -Please call with questions if any -Thank you for allowing us to participate in patient's care and management I spent 30 minutes taking history, doing physical examination, reviewing old medical records, coordinating care and counseling the patient.
[2017-07-11] MEDS: Tamsulosin HCl 0.4 MG Capsule PO (16:50)
--- NOTE | 2017-07-11 21:32 | PN_ITS ---
Patient Problems: Active and Suspected Problems Right leg weakness (Acute) Subjective: Patient was seen and examined today, MRI of the brain did not show any acute infarction, neurology feels the patient has a metabolic encephalopathy with vascular dementia. No further treatment is recommended by neurology other than further rehab. - Physical Exam General: Alert, Cooperative, No apparent distress, Well developed HEENT: Atraumatic, PERRLA, EOMI Oral: Moist Mucosa Neck: Supple, No Nuchal Rigidity, Trachea Midline, Thyroid Normal Size and Texture Lungs: Clear to auscultation, Normal air movement, No rhonchi, No wheeze, No rales Cardiovascular: Regular rate, Regular Rhythm, Normal S1, Normal S2, PMI Normal, No rub noted, No Gallop Abdomen: Bowel Sounds Present, Soft, Non Tender, Non-Distended, No hernias noted Extremities: No clubbing, No cyanosis, No edema, Capillary Refill Less than 3 Seconds Skin: No rashes, No breakdown Neurological: Cranial nerves II-XII grossly intact, Neuro grossly intact, - - Dysarthria Psych/Mental Status: - - Patient is alert but confused Vital Signs Temp Pulse Resp BP Pulse Ox 98.9 F 78 28 H 166/97 H 95 07/11/17 20:58 07/11/17 20:58 07/11/17 20:58 07/11/17 20:58 07/11/17 20:58 Oxygen Delivery Method Room Air Weight: 51 kg Body Mass Index (BMI) 20.5 Intake and Output for Last 24 Hours 07/09/17 07/10/17 07/11/17 23:59 23:59 23:59 Intake Total 2250 / 2250 2037 Output Total 3 / 3 Balance 2247 / 2247 2037 POC Glucose 07/11/17 07/10/17 06:29 22:38 POC Glucose 110 111 H Assessment/Plan Active and Suspected Problems Right leg weakness (Acute) #1 right sided weakness-probably as a result of generalized deconditioning, patient will need placement in a alf facility #2 vascular dementia #3 cerebrovascular disease #4 hyperlipidemia #5 generalized debility secondary to vascular dementia and cerebrovascular disease-patient will need placed in a alf facility at least short- term, patient's family favors TCU Code Visit Inpatient E&M: [id number] Subs Hosp L2
[2017-07-11] MEDS: Donepezil HCl 10 MG Tablet PO (22:43)
[2017-07-11] MEDS: Atorvastatin Calcium 40 MG Tablet PO (22:44)
[2017-07-12] VITALS (8 sets, daily range): BP systolic 152–165; BP diastolic 91–101; PULSE 61–149; RESP 16–24; TEMP 37.1; O2SAT 95–98; BMI 20.5
[2017-07-12] MEDS: 0.9% Normal Saline 1,000 ML 100 ML IV ×2 (01:41→12:08)
[2017-07-12] MEDS: Heparin Injection 5,000 UNITS/ML Syringe 5000 UNITS SC ×2 (05:37→13:08)
[2017-07-12] MEDS: Memantine Hydrochloride 10 MG Tablet PO (09:41)
[2017-07-12] MEDS: Aspirin 81 MG TAB.CHEW PO (09:41)
--- NOTE | 2017-07-12 14:14 | PCM.PROGNOTE ---
Patient Problems: Active and Suspected Problems Right leg weakness (Acute) Subjective: Pt resting calm and comfortably in bed in NAD. Pt with great difficulty articulating words. Does respond no when asked if she has any pain, discomfort, or headaches. - Physical Exam General: Alert, Oriented x3, Cooperative, - - aphasia HEENT: Atraumatic, PERRLA, EOMI, Normocephalic Neck: Supple, No JVD, Negative Carotid Bruits Lungs: Clear to auscultation, Normal air movement Cardiovascular: Regular rate, No murmurs Abdomen: Bowel Sounds Present, Soft, Non Tender Extremities: No edema, Capillary Refill Less than 3 Seconds Skin: No rashes, No breakdown Musculoskeletal: No Tenderness to Palpation of Joints or Extremities Neurological: Cranial nerves II-XII grossly intact Psych/Mental Status: Normal Affect, Appropriate Vital Signs Temp Pulse Resp BP Pulse Ox 98.7 F 65 16 152/91 H 98 07/12/17 09:40 07/12/17 11:00 07/12/17 09:40 07/12/17 09:40 07/12/17 09:40 Oxygen Flow Rate 2 Oxygen Delivery Method Room Air Weight: 51 kg Body Mass Index (BMI) 20.5 Intake and Output for Last 24 Hours 07/10/17 07/11/17 07/12/17 23:59 23:59 23:59 Intake Total 2250 / 2250 2565 / 2565 1005 / 1005 Output Total 3 / 3 Balance 2247 / 2247 2565 / 2565 1005 / 1005 Assessment/Plan Active and Suspected Problems Right leg weakness (Acute) 1. Right leg weakness felt to be secondary to worsening of underlying dementia. MRI negative. EEG pending. Neuro following. Continue namenda, aricept. 2. Worsening of chronic debility - PTOT, to SNF 3. CVD - continue aspirin, statin 4. HLD DVT ppx: DC planning: DC when approved for SNF. This patient was seen by Omari Foster PA-C under the supervision of Doctor Arguelles.
--- NOTE | 2017-07-12 15:15 | EEG ---
- Electroencephalogram Date of Service 07/12/2017 History EEG is being done in this 77 yr F to rule out seizures EEG Description: This is an 18 channel EEG with 10-20 lead placement system. Bipolar montages, Referential and Circumferential montages were reviewed. Photic stimulation was performed but Hyperventilation was not performed. The posterior dominant background rhythm is 7 HZ synchronous, symmetric, reacting to eye opening and closing. Photo stimulation elicited normal driving response but no abnormal photoparoxysmal response, Hyperventilation was not performed since patient was not following commands per documentation in the techs note. Sleep was not identified. There was intermittent generalized background slowing in the delta and theta frequency wave range. There was no epileptiform discharges or electrographic seizures noted during this recording. EEG Interpretation This is an abnormal EEG due to the presence of mild to moderate generalized background slowing. This can be seen in generalized cerebral dysfunction. Clinical correlation is advised. There is no epileptiform discharges or electrographic seizures noted during the record.
[2017-07-12] MEDS: Tamsulosin HCl 0.4 MG Capsule PO (16:39)
--- NOTE | 2017-07-12 16:56 | TREXTCAR_ITS ---
- Diet 07/10/17 10:55 Diet: Regular Diet Food consistency:: Puree Liquid Consistency:: [place] Thick Dietary Modifications:: Pureed Diet [place] Thick Liquids Is pt able to select menu?: No Diet Comments: Supervision; no straws, meds crushed in applesauce - Routine Orders/Code Status Suppository Type: Dulcolax 10mg Suppository Frequency: Daily PRN Routine Lab Work: CBC - 3 days, BMP - 3 days Code Status: Full Code - Therapies Physical Therapy: Eval and Treat Occupational Therapy: Eval and Treat - Problem/Diagnosis (1) Debility Status: Chronic Current Visit: Yes (2) CVD (cardiovascular disease) Status: Chronic Current Visit: Yes (3) Alzheimer's disease Status: Chronic Current Visit: No (4) Hyperlipidemia Status: Chronic Current Visit: No - Allergies/Procedures Done in Hospital Allergies/Adverse Reactions: Allergies Penicillins [PCN] Allergy (Verified 07/09/17 19:40) Unknown Procedures: Electroencephalogram, - - carotid ultrasound - Type of Care/Length of Stay Estimated LOS: Convalescent Care Less Than 30 days Type of Care Needed: Skilled Rehab Potential: Fair Prognosis: Fair - Additional Orders/Day of Discharge Day of Discharge: 07/12/17 - Dietary and Speech Recommendations Dietitian Recommendations/Changes: Suggest therapeutic diet of NCS, no added salt, cardiac with texture & consistency as per speech. - Follow Up Care Primary Care Physician: Thom Werner Chi, MD [Primary Care Provider] - Please follow up with your Primary Care Physician in: 1-2 weeks
--- NOTE | 2017-07-12 17:51 | NURSING ---
Called report to Annette AMAYA in TCU
--- NOTE | 2017-07-14 08:59 | PCM.DC.SUM ---
Discharge Date and Diagnosis Date of Admission: 07/09/17 Date of Discharge: 07/12/17 - Primary Discharge Diagnosis #1 right hemiparesis-secondary to generalized deconditioning on a backdrop of vascular dementia #2 vascular dementia #3 cerebrovascular disease #4 hyperlipidemia #5 generalized debility #6 metabolic encephalopathy-etiology unknown #7 pulmonary hypertension - Secondary Discharge Diagnosis Chronic Problems TIA (transient ischemic attack) (Chronic) Hyperkalemia (Chronic) Chronic ischemic left MCA stroke (Chronic) Alzheimer's disease (Chronic) Chronic kidney disease (Chronic) Insomnia (Chronic) Debility (Chronic) CVD (cardiovascular disease) (Chronic) Diabetes (Chronic) diet controlled Hypertension (Chronic) 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 Patient has a history of dementia and is being cared for by her daughters. Workup in the emergency room did not reveal an acute stroke, patient was admitted to PCU and stroke workup was initiated including echocardiogram and imaging studies. Patient was seen in consultation by neurology who felt that the patient had a metabolic encephalopathy, she was seen by PT and OT as well as speech therapy. It was felt that she would benefit from short-term placement in a longterm facility. Echocardiogram was obtained which was unremarkable except for mild pulmonary hypertension. On 07/12/17, patient was seen and examined felt in stable condition for discharge to a local extended care facility. Home Medications: Medications to take at Discharge Acetaminophen [Tylenol] 1,000 mg PO Q8H PRN PRN tablet 01/25/17 Bisacodyl [Dulcolax] 10 mg RECTAL DAILY PRN 03/08/17 Memantine HCl/Donepezil HCl [Namzaric 28 mg-10 mg Capsule] 1 each PO DAILY 07/09/17 Aspirin [Aspirin, Baby] 81 mg PO DAILY@0800 07/12/17 Atorvastatin Calcium [Lipitor] 40 mg PO QHS 07/12/17 Tamsulosin HCl [Flomax] 0.4 mg PO DAILY@1730 07/12/17 Primary Care Physician: Thom Werner Chi, MD [Primary Care Provider] - Please follow up with your Primary Care Physician in: 1-2 weeks Disposition: Assisted facility Minutes spent on discharge:: 36 Patient Condition:: Stable Meaningful Use Info Meaningful Use Diagnoses (Choose all that apply): None applicable Code Visit Inpatient E&M: 43155 Disch Hosp
--- NOTE | 2017-07-14 09:09 | DS.PCM_ITS ---
Discharge Date and Diagnosis Date of Admission: 07/09/17 Date of Discharge: 07/12/17 - Primary Discharge Diagnosis #1 right hemiparesis-secondary to generalized deconditioning on a backdrop of vascular dementia #2 vascular dementia #3 cerebrovascular disease #4 hyperlipidemia #5 generalized debility #6 metabolic encephalopathy-etiology unknown #7 pulmonary hypertension - Secondary Discharge Diagnosis Chronic Problems TIA (transient ischemic attack) (Chronic) Hyperkalemia (Chronic) Chronic ischemic left MCA stroke (Chronic) Alzheimer's disease (Chronic) Chronic kidney disease (Chronic) Insomnia (Chronic) Debility (Chronic) CVD (cardiovascular disease) (Chronic) Diabetes (Chronic) diet controlled Hypertension (Chronic) 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 Patient has a history of dementia and is being cared for by her daughters. Workup in the emergency room did not reveal an acute stroke, patient was admitted to PCU and stroke workup was initiated including echocardiogram and imaging studies. Patient was seen in consultation by neurology who felt that the patient had a metabolic encephalopathy, she was seen by PT and OT as well as speech therapy. It was felt that she would benefit from short-term placement in a group home facility. Echocardiogram was obtained which was unremarkable except for mild pulmonary hypertension. On 07/12/17, patient was seen and examined felt in stable condition for discharge to a local extended care facility. Home Medications: Medications to take at Discharge Acetaminophen [Tylenol] 1,000 mg PO Q8H PRN PRN tablet 01/25/17 Bisacodyl [Dulcolax] 10 mg RECTAL DAILY PRN 03/08/17 Memantine HCl/Donepezil HCl [Namzaric 28 mg-10 mg Capsule] 1 each PO DAILY 07/09 Aspirin [Aspirin, Baby] 81 mg PO DAILY@0800 07/12/17 Atorvastatin Calcium [Lipitor] 40 mg PO QHS 07/12/17 Tamsulosin HCl [Flomax] 0.4 mg PO DAILY@1730 07/12/17 Primary Care Physician: Thom Werner Chi, MD [Primary Care Provider] - Please follow up with your Primary Care Physician in: 1-2 weeks Disposition: Group Home facility Minutes spent on discharge:: 36 Patient Condition:: Stable Meaningful Use Info Meaningful Use Diagnoses (Choose all that apply): None applicable Code Visit Inpatient E&M: 08019 Disch Hosp
== END 2017-07-12 18:26 | DRG 71 ==
LOC: ED 20:20 → PCU 23:32
PROVIDERS: Psychiatry & Neurology Neurology; Admitting Provider Internal Medicine; Emergency Provider Emergency Medicine; Family Provider Family Medicine Geriatric Medicine; PCP Family Medicine Geriatric Medicine; Visit Provider Internal Medicine
DX: G93.41 Metabolic encephalopathy (principal); I69.351 Hemiplegia and hemiparesis following cerebral infarction affecting right dominant side; E11.22 Type 2 diabetes mellitus with diabetic chronic kidney disease; I27.20 Pulmonary hypertension, unspecified; F01.50 Vascular dementia, unspecified severity, without behavioral disturbance, psychotic disturbance, mood disturbance, and anxiety; I25.10 Atherosclerotic heart disease of native coronary artery without angina pectoris; I69.320 Aphasia following cerebral infarction; E78.5 Hyperlipidemia, unspecified; I67.9 Cerebrovascular disease, unspecified; G30.9 Alzheimer's disease, unspecified; F02.80 Dementia in other diseases classified elsewhere, unspecified severity, without behavioral disturbance, psychotic disturbance, mood disturbance, and anxiety; I12.9 Hypertensive chronic kidney disease with stage 1 through stage 4 chronic kidney disease, or unspecified chronic kidney disease; N18.3 Chronic kidney disease, stage 3 (moderate)
CPT/HCPCS: 36415; 70450; 70551; 71010; 80048; 80061; 81001; 82962; 84484; 85025; 85610; 85730; 92507; 92526; 92610; 93005; 93306; 93880; 95819; 97110; 97162; 97165; 97530; 97802; 99285; J7030; A4216

== ENCOUNTER → 2017-08-24 15:17 | Outpatient (CLI) | payer MEDICARE, SELFPAY ==
--- NOTE | 2017-08-24 15:19 | RAD_ITS ---
STUDY: X-RAY CHEST REASON FOR EXAM: Female, 77 years old. Cough TECHNIQUE: Frontal and lateral views of the chest were obtained. COMPARISON: August 07, 2017 FINDINGS: The lungs are underaerated. There are no focal airspace opacities. There is no demonstrated pleural abnormality. The cardiac silhouette is normal in size. The mediastinum and hilar regions are unremarkable. Normal visualized pulmonary arteries. There is atherosclerotic calcification of the thoracic aorta. There are diffuse degenerative changes of the visualized spine. There are degenerative changes in both shoulders. Cholecystectomy clips are present. RAD/Chest PA and Lateral IMPRESSION: There is no evidence of focal consolidation or pleural effusion. Electronically Signed: Lilo Henderson MD at 17:45 EST Tel Direct: [phone], Service support ,
== END ==
PROVIDERS: Family Provider Family Medicine Geriatric Medicine; PCP Family Medicine Geriatric Medicine; Visit Provider Family Medicine Geriatric Medicine
DX: R05 Cough (principal)
CPT/HCPCS: 71046

== ENCOUNTER → 2017-10-04 16:09 | Outpatient (CLI) | payer MEDICARE, SELFPAY ==
[2017-10-04 17:53] LABS: Absolute Lymphocyte Count 1.23 X10^3/ul (0.83-4.51); Basophil# 0.04 X10^3/uL; Basophil% 0.4 % (0-1); Eosinophil# 0.09 X10^3/uL; Hematocrit 42.3 % (37-47); Hemoglobin 13.3 g/dl (12.0-15.0); Lymphocyte # 1.23 X10^3/ul (4.0); Lymphocyte % 13.6 % (19-41); Mean Corp Hgb Conc 31.4 g/gl (32-36); Mean Corpuscular Hgb 29.6 pg (27.0-32.0); Mean Platelet Vol. 11.7 fl (6.2-12.0); Monocyte# 0.64 X10^3/uL; Monocyte% 7.1 % (0-10); Neutrophil # 7.03 X10^3/uL (2.7-7.7); Neutrophil % 77.8 % (47-70); Platelet Count 233 K/mm3 (150-450); RBC Distribution Width CV 14.3 % (11.6-14.6); RBC Distribution Width SD 47.8 fl (35.1-43.9)
[2017-10-04 17:57] LABS: POSITIVE COUNT NO; POSITIVE DIFFERENTIAL NO; POSITIVE MORPHOLOGY NO
[2017-10-04 19:20] LABS: ALB/GLOB Ratio 0.9 RATIO (0.9-2.4); AST(SGOT) 19 U/L (15-37); Alanine Aminotransfer ALT/SGPT 20 U/L (13-56); Albumin, Serum 3.5 g/dL (3.2-5.0); Alkaline Phosphatase 89 U/L (45-117); Anion Gap 11 (5-15); BUN 17 mg/dL (7-18); BUN/Creat Ratio 17.8 RATIO (10-20); Calcium,Total 9.2 mg/dL (8.5-10.1); Chloride 104 mmol/L (98-107); Creatinine, Serum 0.96 mg/dL (0.55-1.02); EST Glomerular Filtration Rate 60 mL/min (>60); Est Glom Filt Rate - Afr Amer 72 mL/min (>60); Globulin 4.1 g/dL (2.2-4.2); Glucose 100 mg/dL (74-106); Potassium 3.7 mmol/L (3.5-5.1); Protein, Total 7.6 g/dL (6.4-8.2); Sodium Level 143 mmol/L (136-145); Thyroid Stim Hormone (TSH) 1.39 uIU/mL (0.358-3.74)
== END ==
PROVIDERS: Family Provider Family Medicine Geriatric Medicine; PCP Family Medicine Geriatric Medicine; Visit Provider Family Medicine Geriatric Medicine
DX: R53.83 Other fatigue (principal)
CPT/HCPCS: 36415; 80053; 84443; 85025